=== PATIENT | female | born 1965 | race Caucasian/White ===

== ENCOUNTER 2021-06-16 17:22 | Inpatient (IN) ==
[2021-06-16] MEDS ORDERED: Naloxone 0.4 MG/ML INJ IVP PRN (20:46)
[2021-06-16] MEDS ORDERED: Isovue-370 500 ML BOTTLE IVP ONE (20:54)
[2021-06-16 22:55] LABS: BUN/Creatinine Ratio 29 (6-26); Blood Urea Nitrogen 20 mg/dL (6-20); C-Reactive Protein > 300 mg/L (Less than 10); Calcium 8.3 mg/dL (8.6-10.3); Carbon Dioxide 26 mEq/L (23-29); Chloride 85 mEq/L (98-107); Glucose 143 mg/dL (70-105); Osmolality,Calculated 253 (280-300); Potassium 2.8 mEq/L (3.5-5.1); Sodium 119 mEq/L (136-145); Thyroid Stimulating Hormone 0.355 mcIU/mL (0.340-5.600); eGFR For African Americans > 60 (> 60); eGFR For Non-African Americans > 60 (> 60)
[2021-06-16] MEDS: 0.9 % Sodium Chloride 1,000 ML IVC SCH (23:20)
[2021-06-17] MEDS: Ipratropium 1 PUFF INHALER IH SCH ×4 (04:03→21:39)
[2021-06-17 05:22] LABS: Hematocrit 35.9 % (35.3-44.9); Mean Corpuscular HGB Conc 36.2 g/dL (31.6-35.5); Mean Corpuscular Hemoglobin 30.1 pg (28.0-33.3); Mean Corpuscular Volume 83.1 fL (83.0-100.0); Mean Platelet Volume 9.9 fL (9.4-12.4); Platelet Count 256 K/mcL (140-400); Red Blood Count 4.32 M/mcL (3.82-4.97); Red Cell Distribution Width 13.2 % (11.5-14.5); White Blood Count 19.3 K/mcL (4.3-11.1)
[2021-06-17 05:32] LABS: INR 1.7; Prothrombin Time 18.4 Seconds (9.4-12.1)
[2021-06-17 05:39] LABS: BUN/Creatinine Ratio 25 (6-26); Blood Urea Nitrogen 17 mg/dL (6-20); Calcium 8.9 mg/dL (8.6-10.3); Carbon Dioxide 24 mEq/L (23-29); Chloride 90 mEq/L (98-107); Glucose 127 mg/dL (70-105); Osmolality,Calculated 263 (280-300); Phosphorous 3.4 mg/dL (2.7-4.5); Potassium 3.1 mEq/L (3.5-5.1); Sodium 125 mEq/L (136-145); eGFR For African Americans > 60 (> 60); eGFR For Non-African Americans > 60 (> 60)
[2021-06-17] MEDS: *HR* Enoxaparin 40 MG/0.4 ML SYRINGE SQ SCH (05:43)
[2021-06-17] MEDS: Doxycycline 100 MG in 0.9 % Sodium Chloride Mini Bag 100 ML IVPB SCH ×2 (05:43→18:30)
[2021-06-17 05:51] LABS: Lymphocytes # 1.2 K/mcL (0.6-4.6); Neutrophils # 17.8 K/mcL (1.6-8.9); Platelet Estimate Normal (Normal); Toxic Granulation Present (Not Present)
[2021-06-17] MEDS: Nicotine 14 MG PATCH.TD24 TD SCH (08:05)
[2021-06-17] MEDS: diazePAM 5 MG TABLET PO SCH ×2 (08:06→20:40)
[2021-06-17] MEDS ORDERED: cefTRIAXone 1,000 MG in Water for inj. (sterile) 10 ML IVP SCH (09:00)
[2021-06-17] MEDS: 0.9 % Sodium Chloride 1,000 ML IVC SCH (12:13)
[2021-06-17] MEDS: *HR* Metoprolol 5 MG/5 ML VIAL IVP PRN ×2 (12:40→18:36)
[2021-06-17 13:02] LABS: Lactate Dehydrogenase 259 Units/L (140-271)
[2021-06-17] MEDS ORDERED: Perflutren Lipid Microsphere 1.3 ML in 0.9 % Sodium Chloride 8.7 ML IVP PRN (15:47)
[2021-06-17] MEDS: Piperacillin/Tazobactam 3.375 GM in 0.9 % Sodium Chloride Mini Bag 100 ML IVPB SCH (15:56)
[2021-06-17 17:07] LABS: Albumin 2.5 g/dL (3.5-5.7); Albumin/Globulin Ratio 0.9 (1.1-2.2); Bilirubin,Direct 0.3 mg/dL (0.0-0.2); Bilirubin,Indirect 0.3 mg/dL (0.0-1.0); Bilirubin,Total 0.6 mg/dL (0.3-1.0); Globulin 2.8 g/dL (2.4-3.5); Total Protein 5.3 g/dL (6.4-8.9)
[2021-06-17 18:11] LABS: RBC,Pleural Fluid 3000 RBC/mcL
[2021-06-17 18:22] LABS: Appearance of Pleural Fl Cloudy (Clear)
[2021-06-17] MEDS ORDERED: D5% in Water 1,000 ML IVC SCH (18:30)
[2021-06-17 19:01] LABS: Glucose,Pleural Fluid < 10 mg/dL (No Ref Range); LDH,Pleural Fluid > 1200 Units/L (No Ref Range); Total Protein,Pleural Fluid 4.3 g/dL
[2021-06-17] MEDS: Melatonin 3 MG TABLET PO PRN (20:40)
[2021-06-17 21:25] LABS: Basophils,Pleural Fluid 0 %; Eosinophils,Pleural Fluid 0 %
[2021-06-17] MEDS ORDERED: *HR* LORazepam 2 MG/ML VIAL IVP ONE (23:29)
[2021-06-18 00:11] LABS: ABG Base Excess -3 mEq/L (-2 to 3); ABG HCO3 22 mEq/L (21-27); ABG Oxygen Saturation 92 % (95-98); ABG PCO2 34 mmHg (35-45); ABG PO2 62 mmHg (85-104); ABG TCO2 23 mEq/L (20-26)
[2021-06-18] MEDS: Piperacillin/Tazobactam 3.375 GM in 0.9 % Sodium Chloride Mini Bag 100 ML IVPB SCH ×4 (00:13→23:37)
[2021-06-18] MEDS: Ipratropium 1 PUFF INHALER IH SCH ×4 (03:39→20:03)
[2021-06-18 06:31] LABS: Hematocrit 35.2 % (35.3-44.9); Hemoglobin 12.1 g/dL (11.5-15.4); Mean Corpuscular HGB Conc 34.4 g/dL (31.6-35.5); Mean Corpuscular Hemoglobin 29.1 pg (28.0-33.3); Mean Corpuscular Volume 84.6 fL (83.0-100.0); Mean Platelet Volume 9.5 fL (9.4-12.4); Platelet Count 218 K/mcL (140-400); Red Blood Count 4.16 M/mcL (3.82-4.97); White Blood Count 22.4 K/mcL (4.3-11.1)
[2021-06-18] MEDS: *HR* Enoxaparin 40 MG/0.4 ML SYRINGE SQ SCH (06:43)
[2021-06-18] MEDS: Doxycycline 100 MG in 0.9 % Sodium Chloride Mini Bag 100 ML IVPB SCH ×2 (06:44→17:10)
[2021-06-18 06:52] LABS: Lymphocytes # 1.3 K/mcL (0.6-4.6); Monocytes # 0.9 K/mcL (0.0-1.3); Neutrophils # 20.2 K/mcL (1.6-8.9); Toxic Granulation Present (Not Present)
[2021-06-18 06:53] LABS: BUN/Creatinine Ratio 29 (6-26); Blood Urea Nitrogen 14 mg/dL (6-20); Calcium 8.5 mg/dL (8.6-10.3); Carbon Dioxide 23 mEq/L (23-29); Chloride 96 mEq/L (98-107); Glucose 121 mg/dL (70-105); Magnesium 1.7 mg/dL (1.6-2.6); Osmolality,Calculated 262 (280-300); Phosphorous 3.7 mg/dL (2.7-4.5); Platelet Estimate Normal (Normal); Potassium 5.1 mEq/L (3.5-5.1); Sodium 125 mEq/L (136-145); eGFR For African Americans > 60 (> 60); eGFR For Non-African Americans > 60 (> 60)
[2021-06-18] MEDS ORDERED: 0.9 % Sodium Chloride 1,000 ML IVC SCH (07:45)
[2021-06-18] MEDS ORDERED: Remdesivir 200 MG in 0.9 % Sodium Chloride 100 ML IVPB ONE (09:00)
[2021-06-18] MEDS: Nicotine 14 MG PATCH.TD24 TD SCH (09:39)
[2021-06-18] MEDS: diazePAM 5 MG TABLET PO SCH ×2 (09:39→20:34)
[2021-06-18] MEDS: Furosemide 20 MG/2 ML VIAL IVP SCH (09:39)
[2021-06-18] MEDS: *HR* Metoprolol 5 MG/5 ML VIAL IVP PRN (23:37)
[2021-06-19] MEDS ORDERED: *HR* LORazepam 2 MG/ML VIAL IVP ONE ×3 (03:07→22:47)
[2021-06-19] MEDS: Ipratropium 1 PUFF INHALER IH SCH ×4 (03:50→21:25)
[2021-06-19] MEDS: Doxycycline 100 MG in 0.9 % Sodium Chloride Mini Bag 100 ML IVPB SCH (05:40)
[2021-06-19 07:01] LABS: BUN/Creatinine Ratio 31 (6-26); Blood Urea Nitrogen 16 mg/dL (6-20); Calcium 8.3 mg/dL (8.6-10.3); Carbon Dioxide 27 mEq/L (23-29); Chloride 95 mEq/L (98-107); Glucose 105 mg/dL (70-105); Magnesium 1.5 mg/dL (1.6-2.6); Osmolality,Calculated 270 (280-300); Phosphorous 3.9 mg/dL (2.7-4.5); Potassium 4.1 mEq/L (3.5-5.1); Sodium 129 mEq/L (136-145); eGFR For African Americans > 60 (> 60); eGFR For Non-African Americans > 60 (> 60)
[2021-06-19 07:02] LABS: Albumin 2.6 g/dL (3.5-5.7); Albumin/Globulin Ratio 0.9 (1.1-2.2); Bilirubin,Direct 0.4 mg/dL (0.0-0.2); Bilirubin,Indirect 0.5 mg/dL (0.0-1.0); Bilirubin,Total 0.9 mg/dL (0.3-1.0); Globulin 2.8 g/dL (2.4-3.5); Total Protein 5.4 g/dL (6.4-8.9)
[2021-06-19 07:25] LABS: Hematocrit 36.6 % (35.3-44.9); Hemoglobin 12.4 g/dL (11.5-15.4); Mean Corpuscular HGB Conc 33.9 g/dL (31.6-35.5); Mean Corpuscular Hemoglobin 28.7 pg (28.0-33.3); Mean Corpuscular Volume 84.7 fL (83.0-100.0); Mean Platelet Volume 10.1 fL (9.4-12.4); Platelet Count 234 K/mcL (140-400); Red Blood Count 4.32 M/mcL (3.82-4.97); White Blood Count 26.2 K/mcL (4.3-11.1)
[2021-06-19] MEDS ORDERED: *HR* HYDROmorphone PF 0.5 MG/0.5 ML SYRINGE IVP PRN (08:16)
[2021-06-19] MEDS ORDERED: Ondansetron 4 MG/2 ML VIAL IVP PRN (08:16)
[2021-06-19] MEDS ORDERED: *HR* FentaNYL (PF) 100 MCG/2 ML VIAL IVP PRN (08:16)
[2021-06-19 08:26] LABS: Lymphocytes # 1.1 K/mcL (0.6-4.6); Platelet Estimate Normal (Normal)
[2021-06-19] MEDS: Nicotine 14 MG PATCH.TD24 TD SCH ×2 (08:30→10:02)
[2021-06-19] MEDS: diazePAM 5 MG TABLET PO SCH ×2 (08:30→19:58)
[2021-06-19] MEDS: Furosemide 20 MG/2 ML VIAL IVP SCH (08:30)
[2021-06-19] MEDS: Remdesivir 100 MG in 0.9 % Sodium Chloride 100 ML IVPB SCH (08:37)
[2021-06-19 22:17] LABS: Adenovirus Not Detected (Not Detect); Bordetella Pertussis Not Detected (Not Detect); Chlamydophila pneumoniae Not Detected (Not Detect); Coronavirus 229E Not Detected (Not Detect); Coronavirus HKU1 Not Detected (Not Detect); Coronavirus NL63 Not Detected (Not Detect); Coronavirus OC43 Not Detected (Not Detect); Human Metapneumovirus Not Detected (Not Detect); Human Rhinovirus/Enterovirus DETECTED (Not Detect); Influenza A Subtype 2009 H1 Not Detected (Not Detect); Influenza B Not Detected (Not Detect); Mycoplasma pneumoniae Not Detected (Not Detect); Parainfluenza Virus 1 Not Detected (Not Detect); Parainfluenza Virus 2 Not Detected (Not Detect); Parainfluenza Virus 3 Not Detected (Not Detect); Parainfluenza Virus 4 Not Detected (Not Detect); Respiratory Syncytial Virus Not Detected (Not Detect); SARS-CoV-2 Not Detected (Not Detect)
[2021-06-20] MEDS: Ipratropium 1 PUFF INHALER IH SCH ×4 (03:53→19:52)
[2021-06-20] MEDS: *HR* Metoprolol 5 MG/5 ML VIAL IVP PRN (04:29)
[2021-06-20] MEDS: Piperacillin/Tazobactam 3.375 GM in 0.9 % Sodium Chloride Mini Bag 100 ML IVPB SCH ×4 (04:38→21:51)
[2021-06-20] MEDS: *HR* Enoxaparin 40 MG/0.4 ML SYRINGE SQ SCH (05:29)
[2021-06-20 07:04] LABS: Red Cell Distribution Width 14.1 % (11.5-14.5)
[2021-06-20 07:05] LABS: Hematocrit 35.1 % (35.3-44.9); Hemoglobin 12.3 g/dL (11.5-15.4); Mean Corpuscular Hemoglobin 29.7 pg (28.0-33.3); Mean Corpuscular Volume 84.8 fL (83.0-100.0); Mean Platelet Volume 9.8 fL (9.4-12.4); Platelet Count 235 K/mcL (140-400); Red Blood Count 4.14 M/mcL (3.82-4.97)
[2021-06-20 07:18] LABS: Magnesium 1.7 mg/dL (1.6-2.6); Phosphorous 4.2 mg/dL (2.7-4.5)
[2021-06-20 07:24] LABS: White Blood Count 31.2 K/mcL (4.3-11.1)
[2021-06-20 07:35] LABS: Alanine Aminotransferase 69 Units/L (7-52); Albumin 2.7 g/dL (3.5-5.7); Albumin/Globulin Ratio 0.9 (1.1-2.2); Alkaline Phosphatase 110 Units/L (34-104); BUN/Creatinine Ratio 33 (6-26); Bilirubin,Total 1.1 mg/dL (0.3-1.0); Blood Urea Nitrogen 13 mg/dL (6-20); Calcium 8.3 mg/dL (8.6-10.3); Carbon Dioxide 28 mEq/L (23-29); Chloride 94 mEq/L (98-107); Glucose 100 mg/dL (70-105); Osmolality,Calculated 272 (280-300); Potassium 3.8 mEq/L (3.5-5.1); Sodium 131 mEq/L (136-145); Total Protein 5.7 g/dL (6.4-8.9); eGFR For African Americans > 60 (> 60); eGFR For Non-African Americans > 60 (> 60)
[2021-06-20 08:34] LABS: Aspartate Amino Transferase 58 Units/L (13-39)
[2021-06-20 09:03] LABS: Lymphocytes # 1.9 K/mcL (0.6-4.6); Monocytes # 0.3 K/mcL (0.0-1.3); Neutrophils # 27.8 K/mcL (1.6-8.9); Platelet Estimate Normal (Normal)
[2021-06-20] MEDS: Nicotine 14 MG PATCH.TD24 TD SCH (09:49)
[2021-06-20] MEDS: diazePAM 5 MG TABLET PO SCH ×2 (09:49→21:51)
[2021-06-20] MEDS: Furosemide 20 MG/2 ML VIAL IVP SCH ×2 (09:49→21:50)
[2021-06-20] MEDS: Remdesivir 100 MG in 0.9 % Sodium Chloride 100 ML IVPB SCH (10:14)
[2021-06-20] MEDS ORDERED: SODIUM CHLORIDE 0.9% IX ONE (11:54)
[2021-06-20] MEDS ORDERED: ALTEPLASE IX ONE (11:54)
[2021-06-20] MEDS: Melatonin 3 MG TABLET PO PRN (21:51)
[2021-06-21] MEDS: Furosemide 20 MG/2 ML VIAL IVP SCH ×3 (00:34→10:19)
[2021-06-21] MEDS: Ipratropium 1 PUFF INHALER IH SCH ×4 (03:05→20:23)
[2021-06-21] MEDS: Piperacillin/Tazobactam 3.375 GM in 0.9 % Sodium Chloride Mini Bag 100 ML IVPB SCH ×3 (05:19→20:24)
[2021-06-21] MEDS: *HR* Enoxaparin 40 MG/0.4 ML SYRINGE SQ SCH (05:19)
[2021-06-21 08:12] LABS: Alanine Aminotransferase 48 Units/L (7-52); Albumin 2.6 g/dL (3.5-5.7); Albumin/Globulin Ratio 0.8 (1.1-2.2); Alkaline Phosphatase 101 Units/L (34-104); Aspartate Amino Transferase 35 Units/L (13-39); BUN/Creatinine Ratio 32 (6-26); Blood Urea Nitrogen 12 mg/dL (6-20); Calcium 8.2 mg/dL (8.6-10.3); Carbon Dioxide 34 mEq/L (23-29); Chloride 88 mEq/L (98-107); Globulin 3.1 g/dL (2.4-3.5); Glucose 113 mg/dL (70-105); Magnesium 1.5 mg/dL (1.6-2.6); Osmolality,Calculated 271 (280-300); Potassium 3.4 mEq/L (3.5-5.1); Sodium 130 mEq/L (136-145); Total Protein 5.7 g/dL (6.4-8.9); eGFR For African Americans > 60 (> 60); eGFR For Non-African Americans > 60 (> 60)
[2021-06-21] MEDS: Nicotine 14 MG PATCH.TD24 TD SCH (08:44)
[2021-06-21] MEDS: diazePAM 5 MG TABLET PO SCH ×2 (08:44→20:21)
[2021-06-21] MEDS ORDERED: *HR* Alteplase (Cathflo) 2 MG VIAL IVP ONE (09:18)
[2021-06-21] MEDS ORDERED: ALTEPLASE IX ONE (09:49)
[2021-06-21] MEDS ORDERED: SODIUM CHLORIDE 0.9% IX ONE (09:49)
[2021-06-21 10:00] LABS: Hemoglobin 12.2 g/dL (11.5-15.4); Mean Platelet Volume 10.4 fL (9.4-12.4); Platelet Count 278 K/mcL (140-400); Red Cell Distribution Width 14.2 % (11.5-14.5)
[2021-06-21 10:02] LABS: Hematocrit 35.3 % (35.3-44.9); Mean Corpuscular HGB Conc 34.6 g/dL (31.6-35.5); Mean Corpuscular Hemoglobin 29.8 pg (28.0-33.3); Mean Corpuscular Volume 86.3 fL (83.0-100.0); Red Blood Count 4.09 M/mcL (3.82-4.97)
[2021-06-21 10:35] LABS: White Blood Count 31.1 K/mcL (4.3-11.1)
[2021-06-21 10:59] LABS: Lymphocytes # 3.1 K/mcL (0.6-4.6); Monocytes # 0.3 K/mcL (0.0-1.3); Neutrophils # 26.8 K/mcL (1.6-8.9); Platelet Estimate Normal (Normal); Toxic Granulation Present (Not Present)
[2021-06-21] MEDS: Acetaminophen 325 MG TABLET PO PRN (13:17)
[2021-06-21] MEDS: *HR* OxyCODONE/APAP 5/325 TABLET PO PRN (16:27)
[2021-06-21] MEDS: Melatonin 3 MG TABLET PO PRN (20:22)
[2021-06-22] MEDS: Ipratropium 1 PUFF INHALER IH SCH ×5 (04:06→20:11)
[2021-06-22] MEDS: *HR* OxyCODONE/APAP 5/325 TABLET PO PRN (05:13)
[2021-06-22] MEDS: *HR* Enoxaparin 40 MG/0.4 ML SYRINGE SQ SCH (05:13)
[2021-06-22] MEDS: Piperacillin/Tazobactam 3.375 GM in 0.9 % Sodium Chloride Mini Bag 100 ML IVPB SCH ×3 (05:14→20:16)
[2021-06-22 06:37] LABS: Hematocrit 36.5 % (35.3-44.9); Hemoglobin 11.9 g/dL (11.5-15.4); Mean Corpuscular HGB Conc 32.6 g/dL (31.6-35.5); Mean Corpuscular Hemoglobin 28.2 pg (28.0-33.3); Mean Corpuscular Volume 86.5 fL (83.0-100.0); Mean Platelet Volume 10.3 fL (9.4-12.4); Platelet Count 340 K/mcL (140-400); Red Blood Count 4.22 M/mcL (3.82-4.97); White Blood Count 25.6 K/mcL (4.3-11.1)
[2021-06-22 06:57] LABS: Alanine Aminotransferase 36 Units/L (7-52); Albumin 2.5 g/dL (3.5-5.7); Albumin/Globulin Ratio 0.9 (1.1-2.2); Alkaline Phosphatase 90 Units/L (34-104); Aspartate Amino Transferase 25 Units/L (13-39); BUN/Creatinine Ratio 29 (6-26); Bilirubin,Total 0.7 mg/dL (0.3-1.0); Blood Urea Nitrogen 12 mg/dL (6-20); Calcium 7.9 mg/dL (8.6-10.3); Carbon Dioxide 34 mEq/L (23-29); Chloride 85 mEq/L (98-107); Globulin 2.8 g/dL (2.4-3.5); Glucose 110 mg/dL (70-105); Magnesium 1.6 mg/dL (1.6-2.6); Osmolality,Calculated 266 (280-300); Phosphorous 3.7 mg/dL (2.7-4.5); Potassium 3.5 mEq/L (3.5-5.1); Sodium 128 mEq/L (136-145); Total Protein 5.3 g/dL (6.4-8.9); eGFR For African Americans > 60 (> 60); eGFR For Non-African Americans > 60 (> 60)
[2021-06-22 07:00] LABS: Lymphocytes # 3.6 K/mcL (0.6-4.6); Monocytes # 0.5 K/mcL (0.0-1.3); Neutrophils # 21.5 K/mcL (1.6-8.9); Platelet Estimate Normal (Normal); Toxic Granulation Present (Not Present)
[2021-06-22] MEDS: diazePAM 5 MG TABLET PO SCH ×2 (09:27→20:16)
[2021-06-22] MEDS: Furosemide 20 MG/2 ML VIAL IVP SCH (09:27)
[2021-06-22] MEDS: Nicotine 14 MG PATCH.TD24 TD SCH (09:27)
[2021-06-23] MEDS: Ipratropium 1 PUFF INHALER IH SCH ×4 (03:31→21:20)
[2021-06-23] MEDS: *HR* Enoxaparin 40 MG/0.4 ML SYRINGE SQ SCH (05:01)
[2021-06-23] MEDS: Piperacillin/Tazobactam 3.375 GM in 0.9 % Sodium Chloride Mini Bag 100 ML IVPB SCH ×3 (05:01→20:14)
[2021-06-23 05:24] LABS: BUN/Creatinine Ratio 23 (6-26); Blood Urea Nitrogen 7 mg/dL (6-20); Calcium 8.2 mg/dL (8.6-10.3); Carbon Dioxide 35 mEq/L (23-29); Chloride 85 mEq/L (98-107); Glucose 103 mg/dL (70-105); Osmolality,Calculated 262 (280-300); Potassium 3.1 mEq/L (3.5-5.1); Sodium 127 mEq/L (136-145); eGFR For African Americans > 60 (> 60); eGFR For Non-African Americans > 60 (> 60)
[2021-06-23 05:26] LABS: Hematocrit 34.8 % (35.3-44.9); Hemoglobin 11.9 g/dL (11.5-15.4); Magnesium 1.7 mg/dL (1.6-2.6); Mean Corpuscular HGB Conc 34.2 g/dL (31.6-35.5); Mean Corpuscular Hemoglobin 29.5 pg (28.0-33.3); Mean Corpuscular Volume 86.4 fL (83.0-100.0); Mean Platelet Volume 10.2 fL (9.4-12.4); Phosphorous 3.2 mg/dL (2.7-4.5); Platelet Count 418 K/mcL (140-400); Red Blood Count 4.03 M/mcL (3.82-4.97); Red Cell Distribution Width 13.9 % (11.5-14.5); White Blood Count 22.8 K/mcL (4.3-11.1)
[2021-06-23 06:20] LABS: Lymphocytes # 1.8 K/mcL (0.6-4.6); Monocytes # 0.9 K/mcL (0.0-1.3); Neutrophils # 19.6 K/mcL (1.6-8.9); Toxic Granulation Present (Not Present)
[2021-06-23 06:21] LABS: Hypochromasia Present (Not Present); Platelet Estimate Normal (Normal)
[2021-06-23] MEDS: diazePAM 5 MG TABLET PO SCH ×2 (08:48→20:13)
[2021-06-23] MEDS: Furosemide 20 MG/2 ML VIAL IVP SCH (08:49)
[2021-06-23] MEDS: Nicotine 14 MG PATCH.TD24 TD SCH (08:49)
[2021-06-23 21:42] LABS: BUN/Creatinine Ratio 18 (6-26); Blood Urea Nitrogen 6 mg/dL (6-20); Calcium 7.8 mg/dL (8.6-10.3); Carbon Dioxide 34 mEq/L (23-29); Chloride 82 mEq/L (98-107); Glucose 96 mg/dL (70-105); Osmolality,Calculated 255 (280-300); Potassium 2.9 mEq/L (3.5-5.1); Sodium 124 mEq/L (136-145); eGFR For African Americans > 60 (> 60); eGFR For Non-African Americans > 60 (> 60)
[2021-06-23] MEDS ORDERED: Potassium Chloride Elixir 20 MEQ/15 ML UDC PO ONE (21:55)
[2021-06-24] MEDS: Ipratropium 1 PUFF INHALER IH SCH ×4 (03:43→20:20)
[2021-06-24 04:46] LABS: Basophils # 0.1 K/mcL (0.0-0.2); Basophils % 0.5 %; Eosinophils % 0.2 %; Hematocrit 33.8 % (35.3-44.9); Hemoglobin 11.4 g/dL (11.5-15.4); Immature Granulocytes % 3.8 % (0-4); Lymphocytes # 1.4 K/mcL (0.6-4.6); Lymphocytes % 8.4 %; Mean Corpuscular HGB Conc 33.7 g/dL (31.6-35.5); Mean Platelet Volume 9.9 fL (9.4-12.4); Monocytes # 0.9 K/mcL (0.0-1.3); Monocytes % 5.4 %; Platelet Count 432 K/mcL (140-400); Red Blood Count 3.93 M/mcL (3.82-4.97); Red Cell Distribution Width 13.9 % (11.5-14.5); Segmented Neutrophils % 81.7 %; White Blood Count 17.1 K/mcL (4.3-11.1)
[2021-06-24] MEDS: Piperacillin/Tazobactam 3.375 GM in 0.9 % Sodium Chloride Mini Bag 100 ML IVPB SCH (04:56)
[2021-06-24] MEDS: *HR* Enoxaparin 40 MG/0.4 ML SYRINGE SQ SCH (04:56)
[2021-06-24 05:00] LABS: BUN/Creatinine Ratio 16 (6-26); Blood Urea Nitrogen 5 mg/dL (6-20); Calcium 7.9 mg/dL (8.6-10.3); Carbon Dioxide 33 mEq/L (23-29); Chloride 87 mEq/L (98-107); Glucose 110 mg/dL (70-105); Osmolality,Calculated 262 (280-300); Potassium 3.4 mEq/L (3.5-5.1); Sodium 127 mEq/L (136-145); eGFR For African Americans > 60 (> 60); eGFR For Non-African Americans > 60 (> 60)
[2021-06-24] MEDS: diazePAM 5 MG TABLET PO SCH ×2 (08:40→20:13)
[2021-06-24] MEDS: Nicotine 14 MG PATCH.TD24 TD SCH (08:40)
[2021-06-24] MEDS: cefTRIAXone 2,000 MG in 0.9 % Sodium Chloride Mini Bag 100 ML IVPB SCH (10:34)
[2021-06-25] MEDS: Ipratropium 1 PUFF INHALER IH SCH ×4 (05:03→22:47)
[2021-06-25] MEDS: *HR* Enoxaparin 40 MG/0.4 ML SYRINGE SQ SCH (05:23)
[2021-06-25 08:00] LABS: Basophils # 0.1 K/mcL (0.0-0.2); Basophils % 0.3 %; Eosinophils % 0.1 %; Hematocrit 30.4 % (35.3-44.9); Hemoglobin 10.4 g/dL (11.5-15.4); Immature Granulocytes % 2.2 % (0-4); Lymphocytes # 1.4 K/mcL (0.6-4.6); Lymphocytes % 7.7 %; Mean Corpuscular HGB Conc 34.2 g/dL (31.6-35.5); Mean Corpuscular Hemoglobin 29.7 pg (28.0-33.3); Mean Corpuscular Volume 86.9 fL (83.0-100.0); Mean Platelet Volume 9.7 fL (9.4-12.4); Monocytes # 1.1 K/mcL (0.0-1.3); Monocytes % 5.8 %; Neutrophils # 15.2 K/mcL (1.6-8.9); Platelet Count 476 K/mcL (140-400); Red Cell Distribution Width 14.1 % (11.5-14.5); Segmented Neutrophils % 83.9 %; White Blood Count 18.1 K/mcL (4.3-11.1)
[2021-06-25 08:17] LABS: BUN/Creatinine Ratio 15 (6-26); Blood Urea Nitrogen 4 mg/dL (6-20); Calcium 8.1 mg/dL (8.6-10.3); Carbon Dioxide 31 mEq/L (23-29); Chloride 91 mEq/L (98-107); Glucose 102 mg/dL (70-105); Magnesium 1.7 mg/dL (1.6-2.6); Osmolality,Calculated 265 (280-300); Phosphorous 3.3 mg/dL (2.7-4.5); Sodium 129 mEq/L (136-145); eGFR For African Americans > 60 (> 60); eGFR For Non-African Americans > 60 (> 60)
[2021-06-25] MEDS: Nicotine 14 MG PATCH.TD24 TD SCH (09:37)
[2021-06-25] MEDS: diazePAM 5 MG TABLET PO SCH ×2 (09:37→20:45)
[2021-06-25] MEDS: cefTRIAXone 2,000 MG in 0.9 % Sodium Chloride Mini Bag 100 ML IVPB SCH ×2 (09:38→15:11)
[2021-06-25] MEDS ORDERED: Magnesium Sulfate 1 GM/102 ML PIGGYBACK IVPB ONE (15:31)
[2021-06-25] MEDS: Nystatin SUSP 5 ML UD.LIQ PO SCH (20:46)
[2021-06-26 02:25] LABS: Basophils % 0.2 %; Eosinophils # 0.1 K/mcL (0.0-0.6); Eosinophils % 0.3 %; Hematocrit 29.2 % (35.3-44.9); Hemoglobin 9.5 g/dL (11.5-15.4); Immature Granulocytes % 1.5 % (0-4); Lymphocytes # 1.3 K/mcL (0.6-4.6); Mean Corpuscular HGB Conc 32.5 g/dL (31.6-35.5); Mean Corpuscular Hemoglobin 28.7 pg (28.0-33.3); Mean Corpuscular Volume 88.2 fL (83.0-100.0); Mean Platelet Volume 9.4 fL (9.4-12.4); Monocytes # 1.3 K/mcL (0.0-1.3); Monocytes % 7.7 %; Neutrophils # 13.5 K/mcL (1.6-8.9); Platelet Count 474 K/mcL (140-400); Red Blood Count 3.31 M/mcL (3.82-4.97); Red Cell Distribution Width 14.1 % (11.5-14.5); Segmented Neutrophils % 82.3 %; White Blood Count 16.4 K/mcL (4.3-11.1)
[2021-06-26 02:43] LABS: BUN/Creatinine Ratio 11 (6-26); Blood Urea Nitrogen 4 mg/dL (6-20); Carbon Dioxide 30 mEq/L (23-29); Chloride 95 mEq/L (98-107); Glucose 113 mg/dL (70-105); Osmolality,Calculated 268 (280-300); Potassium 3.7 mEq/L (3.5-5.1); Sodium 130 mEq/L (136-145); eGFR For African Americans > 60 (> 60); eGFR For Non-African Americans > 60 (> 60)
[2021-06-26] MEDS: Ipratropium 1 PUFF INHALER IH SCH ×4 (04:14→20:52)
[2021-06-26] MEDS: *HR* Enoxaparin 40 MG/0.4 ML SYRINGE SQ SCH (05:31)
[2021-06-26] MEDS: diazePAM 5 MG TABLET PO SCH ×2 (08:44→20:13)
[2021-06-26] MEDS: Nicotine 14 MG PATCH.TD24 TD SCH (08:44)
[2021-06-26] MEDS: Nystatin SUSP 5 ML UD.LIQ PO SCH ×4 (08:44→20:14)
[2021-06-26] MEDS: cefTRIAXone 2,000 MG in 0.9 % Sodium Chloride Mini Bag 100 ML IVPB SCH (14:07)
[2021-06-26] MEDS: Acetaminophen 325 MG TABLET PO PRN (16:20)
[2021-06-26 17:45] LABS: HSV Source Tongue lesion
[2021-06-27] MEDS: Ipratropium 1 PUFF INHALER IH SCH ×5 (03:33→20:06)
[2021-06-27 04:52] LABS: Basophils % 0.1 %; Eosinophils % 0.2 %; Hematocrit 26.7 % (35.3-44.9); Hemoglobin 9.2 g/dL (11.5-15.4); Immature Granulocytes % 1.1 % (0-4); Lymphocytes # 1.5 K/mcL (0.6-4.6); Lymphocytes % 10.1 %; Mean Corpuscular HGB Conc 34.5 g/dL (31.6-35.5); Mean Corpuscular Hemoglobin 30.1 pg (28.0-33.3); Mean Corpuscular Volume 87.3 fL (83.0-100.0); Mean Platelet Volume 9.3 fL (9.4-12.4); Monocytes # 1.3 K/mcL (0.0-1.3); Monocytes % 8.5 %; Platelet Count 508 K/mcL (140-400); Red Blood Count 3.06 M/mcL (3.82-4.97); Red Cell Distribution Width 14.4 % (11.5-14.5)
[2021-06-27 05:03] LABS: INR 1.4
[2021-06-27 05:11] LABS: BUN/Creatinine Ratio 13 (6-26); Blood Urea Nitrogen 4 mg/dL (6-20); Calcium 7.9 mg/dL (8.6-10.3); Carbon Dioxide 27 mEq/L (23-29); Chloride 100 mEq/L (98-107); Glucose 104 mg/dL (70-105); Osmolality,Calculated 261 (280-300); Potassium 2.8 mEq/L (3.5-5.1); Sodium 127 mEq/L (136-145); eGFR For African Americans > 60 (> 60); eGFR For Non-African Americans > 60 (> 60)
[2021-06-27 05:12] LABS: Magnesium 1.6 mg/dL (1.6-2.6); Phosphorous 3.6 mg/dL (2.7-4.5)
[2021-06-27] MEDS: *HR* Enoxaparin 40 MG/0.4 ML SYRINGE SQ SCH (05:20)
[2021-06-27] MEDS ORDERED: Lidocaine -MPF 4% 5 ML AMPUL ONE (07:27)
[2021-06-27] MEDS ORDERED: Ondansetron 4 MG/2 ML VIAL ONE (07:27)
[2021-06-27] MEDS ORDERED: *HR* Rocuronium Bromide 50 MG/5 ML VIAL ONE (07:27)
[2021-06-27] MEDS ORDERED: Lidocaine -MPF 2% 5 ML VIAL ONE (07:27)
[2021-06-27] MEDS ORDERED: *HR* Propofol 200 MG/20 ML VIAL IVP ONE (07:28)
[2021-06-27] MEDS ORDERED: *HR* Midazolam HCl 2 MG/2 ML VIAL ONE (07:28)
[2021-06-27] MEDS ORDERED: *HR* FentaNYL (PF) 100 MCG/2 ML VIAL ONE ×3 (07:28→09:33)
[2021-06-27] MEDS ORDERED: Sugammadex Sodium 200 MG/2 ML VIAL IV ONE (08:28)
[2021-06-27] MEDS ORDERED: *HR* Magnesium Sulfate 1 GM/2 ML VIAL ONE (08:31)
[2021-06-27] MEDS: *HR* FentaNYL (PF) 100 MCG/2 ML VIAL IVP PRN ×6 (09:35→10:16)
[2021-06-27 10:37] LABS: HSV 1 DNA DETECTED (Not Detect); HSV 2 DNA DETECTED (Not Detect)
[2021-06-27] MEDS ORDERED: Acetaminophen 325 MG TABLET PO PRN (10:56)
[2021-06-27] MEDS ORDERED: Melatonin 3 MG TABLET PO PRN (10:56)
[2021-06-27] MEDS: *HR* HYDROcodone/Acet 5/325 mg TABLET PO PRN (11:14)
[2021-06-27] MEDS: Nystatin SUSP 5 ML UD.LIQ PO SCH ×3 (13:39→20:49)
[2021-06-27] MEDS: *HR* OxyCODONE/APAP 10/325 TABLET PO PRN ×2 (13:39→20:54)
[2021-06-27] MEDS: 0.9 % Sodium Chloride 1,000 ML IVC SCH (13:39)
[2021-06-27] MEDS: cefTRIAXone 2,000 MG in 0.9 % Sodium Chloride Mini Bag 100 ML IVPB SCH (14:46)
[2021-06-27] MEDS: Gabapentin 300 MG CAPSULE PO SCH ×2 (14:46→20:49)
[2021-06-27] MEDS: Famotidine 20 MG TABLET PO SCH (20:48)
[2021-06-27] MEDS: diazePAM 5 MG TABLET PO SCH (20:49)
[2021-06-28] MEDS: 0.9 % Sodium Chloride 1,000 ML IVC SCH ×2 (03:35→16:55)
[2021-06-28] MEDS: Ipratropium 1 PUFF INHALER IH SCH ×4 (04:01→22:16)
[2021-06-28] MEDS: *HR* OxyCODONE/APAP 10/325 TABLET PO PRN ×2 (04:12→12:33)
[2021-06-28] MEDS: *HR* Enoxaparin 40 MG/0.4 ML SYRINGE SQ SCH (05:09)
[2021-06-28] MEDS: Gabapentin 300 MG CAPSULE PO SCH ×3 (07:32→20:58)
[2021-06-28] MEDS: Nystatin SUSP 5 ML UD.LIQ PO SCH ×4 (07:33→20:59)
[2021-06-28] MEDS: Nicotine 14 MG PATCH.TD24 TD SCH (07:33)
[2021-06-28] MEDS: diazePAM 5 MG TABLET PO SCH ×2 (07:33→20:58)
[2021-06-28] MEDS: Famotidine 20 MG TABLET PO SCH ×2 (07:33→20:59)
[2021-06-28 09:44] LABS: BUN/Creatinine Ratio 17 (6-26); Blood Urea Nitrogen 6 mg/dL (6-20); Calcium 7.9 mg/dL (8.6-10.3); Carbon Dioxide 23 mEq/L (23-29); Chloride 102 mEq/L (98-107); Glucose 103 mg/dL (70-105); Magnesium 1.9 mg/dL (1.6-2.6); Osmolality,Calculated 272 (280-300); Phosphorous 2.8 mg/dL (2.7-4.5); Potassium 3.9 mEq/L (3.5-5.1); Sodium 132 mEq/L (136-145); eGFR For African Americans > 60 (> 60); eGFR For Non-African Americans > 60 (> 60)
[2021-06-28 11:07] LABS: Basophils % 0.3 %; Hematocrit 26.6 % (35.3-44.9); Hemoglobin 8.5 g/dL (11.5-15.4); Immature Granulocytes % 0.9 % (0-4); Lymphocytes # 1.7 K/mcL (0.6-4.6); Mean Corpuscular Hemoglobin 29.5 pg (28.0-33.3); Mean Corpuscular Volume 92.4 fL (83.0-100.0); Monocytes # 1.2 K/mcL (0.0-1.3); Monocytes % 10.7 %; Neutrophils # 7.8 K/mcL (1.6-8.9); Platelet Count 492 K/mcL (140-400); Red Blood Count 2.88 M/mcL (3.82-4.97); Red Cell Distribution Width 14.9 % (11.5-14.5); Segmented Neutrophils % 72.1 %; White Blood Count 10.8 K/mcL (4.3-11.1)
[2021-06-28] MEDS: *HR* HYDROcodone/Acet 5/325 mg TABLET PO PRN (14:07)
[2021-06-28] MEDS: cefTRIAXone 2,000 MG in 0.9 % Sodium Chloride Mini Bag 100 ML IVPB SCH (14:07)
[2021-06-29 01:55] LABS: Basophils % 0.2 %; Eosinophils # 0.1 K/mcL (0.0-0.6); Eosinophils % 0.8 %; Hematocrit 23.7 % (35.3-44.9); Hemoglobin 7.6 g/dL (11.5-15.4); Immature Granulocytes % 0.7 % (0-4); Lymphocytes # 1.4 K/mcL (0.6-4.6); Lymphocytes % 12.2 %; Mean Corpuscular HGB Conc 32.1 g/dL (31.6-35.5); Mean Corpuscular Hemoglobin 29.1 pg (28.0-33.3); Mean Corpuscular Volume 90.8 fL (83.0-100.0); Mean Platelet Volume 8.9 fL (9.4-12.4); Monocytes # 1.2 K/mcL (0.0-1.3); Monocytes % 10.2 %; Neutrophils # 8.6 K/mcL (1.6-8.9); Platelet Count 450 K/mcL (140-400); Red Blood Count 2.61 M/mcL (3.82-4.97); Segmented Neutrophils % 75.9 %; White Blood Count 11.3 K/mcL (4.3-11.1)
[2021-06-29 02:15] LABS: BUN/Creatinine Ratio 17 (6-26); Blood Urea Nitrogen 5 mg/dL (6-20); Calcium 7.5 mg/dL (8.6-10.3); Carbon Dioxide 22 mEq/L (23-29); Chloride 102 mEq/L (98-107); Glucose 106 mg/dL (70-105); Magnesium 1.5 mg/dL (1.6-2.6); Osmolality,Calculated 270 (280-300); Phosphorous 3.3 mg/dL (2.7-4.5); Potassium 3.5 mEq/L (3.5-5.1); Sodium 131 mEq/L (136-145); eGFR For African Americans > 60 (> 60); eGFR For Non-African Americans > 60 (> 60)
[2021-06-29] MEDS: Ipratropium 1 PUFF INHALER IH SCH ×4 (04:10→21:02)
[2021-06-29] MEDS: *HR* HYDROcodone/Acet 5/325 mg TABLET PO PRN ×2 (05:04→21:50)
[2021-06-29] MEDS: 0.9 % Sodium Chloride 1,000 ML IVC SCH (05:07)
[2021-06-29] MEDS: *HR* Enoxaparin 40 MG/0.4 ML SYRINGE SQ SCH (05:07)
[2021-06-29] MEDS: diazePAM 5 MG TABLET PO SCH ×3 (08:54→19:51)
[2021-06-29] MEDS: Famotidine 20 MG TABLET PO SCH ×2 (08:54→19:50)
[2021-06-29] MEDS: Gabapentin 300 MG CAPSULE PO SCH ×3 (08:54→19:51)
[2021-06-29] MEDS: valACYclovir 500 MG TABLET PO SCH ×2 (08:55→19:51)
[2021-06-29] MEDS: Nicotine 14 MG PATCH.TD24 TD SCH (08:55)
[2021-06-29] MEDS: Nystatin SUSP 5 ML UD.LIQ PO SCH ×4 (08:55→19:50)
[2021-06-29] MEDS: cefTRIAXone 2,000 MG in 0.9 % Sodium Chloride Mini Bag 100 ML IVPB SCH (14:20)
[2021-06-30] MEDS: Ipratropium 1 PUFF INHALER IH SCH ×4 (04:06→21:29)
[2021-06-30 05:58] LABS: Basophils % 0.3 %; Eosinophils # 0.1 K/mcL (0.0-0.6); Eosinophils % 0.9 %; Hemoglobin 7.9 g/dL (11.5-15.4); Immature Granulocytes % 1.4 % (0-4); Lymphocytes # 1.8 K/mcL (0.6-4.6); Mean Corpuscular HGB Conc 32.9 g/dL (31.6-35.5); Mean Corpuscular Volume 88.2 fL (83.0-100.0); Mean Platelet Volume 8.8 fL (9.4-12.4); Monocytes # 1.2 K/mcL (0.0-1.3); Monocytes % 11.1 %; Neutrophils # 7.3 K/mcL (1.6-8.9); Platelet Count 532 K/mcL (140-400); Red Blood Count 2.72 M/mcL (3.82-4.97); Red Cell Distribution Width 15.2 % (11.5-14.5); Segmented Neutrophils % 69.3 %; White Blood Count 10.6 K/mcL (4.3-11.1)
[2021-06-30 06:13] LABS: BUN/Creatinine Ratio 10 (6-26); Blood Urea Nitrogen 4 mg/dL (6-20); Calcium 7.7 mg/dL (8.6-10.3); Carbon Dioxide 23 mEq/L (23-29); Chloride 102 mEq/L (98-107); Glucose 101 mg/dL (70-105); Magnesium 1.8 mg/dL (1.6-2.6); Osmolality,Calculated 271 (280-300); Phosphorous 3.1 mg/dL (2.7-4.5); Potassium 3.2 mEq/L (3.5-5.1); Sodium 132 mEq/L (136-145); eGFR For African Americans > 60 (> 60); eGFR For Non-African Americans > 60 (> 60)
[2021-06-30] MEDS: Nystatin SUSP 5 ML UD.LIQ PO SCH ×4 (09:09→20:23)
[2021-06-30] MEDS: diazePAM 5 MG TABLET PO SCH ×3 (09:09→20:24)
[2021-06-30] MEDS: Famotidine 20 MG TABLET PO SCH ×2 (09:09→20:24)
[2021-06-30] MEDS: Gabapentin 300 MG CAPSULE PO SCH ×3 (09:09→20:23)
[2021-06-30] MEDS: valACYclovir 500 MG TABLET PO SCH ×2 (09:09→20:24)
[2021-06-30] MEDS: Nicotine 14 MG PATCH.TD24 TD SCH (09:10)
[2021-06-30] MEDS: cefTRIAXone 2,000 MG in 0.9 % Sodium Chloride Mini Bag 100 ML IVPB SCH (14:00)
[2021-06-30] MEDS ORDERED: Magnesium Sulfate 1 GM/102 ML PIGGYBACK IVPB ONE (15:17)
[2021-06-30] MEDS: *HR* HYDROcodone/Acet 5/325 mg TABLET PO PRN (16:56)
[2021-07-01] MEDS: *HR* OxyCODONE/APAP 10/325 TABLET PO PRN ×2 (02:09→21:39)
[2021-07-01] MEDS: Ipratropium 1 PUFF INHALER IH SCH ×4 (03:02→21:46)
[2021-07-01 05:33] LABS: Hematocrit 25.9 % (35.3-44.9); Hemoglobin 8.2 g/dL (11.5-15.4)
[2021-07-01 05:49] LABS: BUN/Creatinine Ratio 11 (6-26); Blood Urea Nitrogen 4 mg/dL (6-20); Calcium 8.2 mg/dL (8.6-10.3); Carbon Dioxide 25 mEq/L (23-29); Chloride 104 mEq/L (98-107); Glucose 126 mg/dL (70-105); Magnesium 1.8 mg/dL (1.6-2.6); Osmolality,Calculated 278 (280-300); Phosphorous 3.7 mg/dL (2.7-4.5); Potassium 3.3 mEq/L (3.5-5.1); Sodium 135 mEq/L (136-145); eGFR For African Americans > 60 (> 60); eGFR For Non-African Americans > 60 (> 60)
[2021-07-01] MEDS: Nystatin SUSP 5 ML UD.LIQ PO SCH ×4 (07:52→20:42)
[2021-07-01] MEDS: Famotidine 20 MG TABLET PO SCH ×2 (07:52→20:43)
[2021-07-01] MEDS: Gabapentin 300 MG CAPSULE PO SCH ×3 (07:52→20:43)
[2021-07-01] MEDS: Nicotine 14 MG PATCH.TD24 TD SCH (07:52)
[2021-07-01] MEDS: diazePAM 5 MG TABLET PO SCH ×3 (07:53→20:44)
[2021-07-01] MEDS: valACYclovir 500 MG TABLET PO SCH ×2 (07:53→20:42)
[2021-07-01] MEDS: *HR* HYDROcodone/Acet 5/325 mg TABLET PO PRN (14:57)
[2021-07-01] MEDS: cefTRIAXone 2,000 MG in 0.9 % Sodium Chloride Mini Bag 100 ML IVPB SCH (14:57)
[2021-07-02] MEDS: Ipratropium 1 PUFF INHALER IH SCH ×2 (04:17→07:45)
[2021-07-02] MEDS: *HR* HYDROcodone/Acet 5/325 mg TABLET PO PRN (04:46)
[2021-07-02] MEDS: *HR* OxyCODONE/APAP 10/325 TABLET PO PRN (10:05)
[2021-07-02] MEDS: Gabapentin 300 MG CAPSULE PO SCH ×2 (10:05→14:36)
[2021-07-02] MEDS: Nicotine 14 MG PATCH.TD24 TD SCH (10:06)
[2021-07-02] MEDS: diazePAM 5 MG TABLET PO SCH ×2 (10:06→14:37)
[2021-07-02] MEDS: valACYclovir 500 MG TABLET PO SCH (10:06)
[2021-07-02] MEDS: Famotidine 20 MG TABLET PO SCH (10:06)
[2021-07-02] MEDS: Nystatin SUSP 5 ML UD.LIQ PO SCH ×2 (10:07→14:40)
[2021-07-02 11:02] VITALS: BP 112/78; PULSE 97; TEMP 97.6; O2SAT 97
[2021-07-02] MEDS: cefTRIAXone 2,000 MG in 0.9 % Sodium Chloride Mini Bag 100 ML IVPB SCH (14:37)
== END 2021-07-02 15:35 | disposition home health service (06) | DRG 853 ==
LOC: 2NENU → SUATTDRO 21:57
PROVIDERS: ADMIT Pharmacist; ATTEND Internal Medicine